=== PATIENT | male | born 1975 | race Caucasian/White ===

== ENCOUNTER → 2022-07-03 | Outpatient (CLI) | payer BC, OTHER | LOC: M SOG 08:12 | PROVIDERS: ATTEND Orthopaedic Surgery | DX: M25.562 Pain in left knee (principal) ==

== ENCOUNTER → 2022-07-24 | Outpatient (CLI) | payer BC | LOC: M SOG 08:31 | PROVIDERS: ATTEND Orthopaedic Surgery | DX: M25.561 Pain in right knee (principal) ==

== ENCOUNTER → 2023-04-06 | Outpatient (CLI) | payer BC | LOC: M SOG 08:48 | PROVIDERS: ATTEND Orthopaedic Surgery | DX: M17.0 Bilateral primary osteoarthritis of knee (principal) ==

== ENCOUNTER → 2023-04-23 | Outpatient (CLI) | payer BC | LOC: M SOG 07:56 | PROVIDERS: ATTEND Physician Assistant | DX: M25.512 Pain in left shoulder (principal) ==

== ENCOUNTER → 2023-06-25 | Outpatient (CLI) | payer OTHER | LOC: M RAD 07:20 | PROVIDERS: ATTEND Orthopaedic Surgery Hand Surgery | DX: M25.522 Pain in left elbow (principal); M25.532 Pain in left wrist ==

== ENCOUNTER → 2023-08-08 | Outpatient (CLI) | payer OTHER | LOC: M RAD 09:01 | PROVIDERS: ATTEND Orthopaedic Surgery Hand Surgery | DX: M25.512 Pain in left shoulder (principal) ==

== ENCOUNTER → 2023-08-17 | Outpatient (CLI) | payer BC ==
[2023-08-17 12:28] LABS: BASO % 0.5 % (0.0-1.0); EOS # 0.2 10^3/uL (0.0-0.5); EOS % 1.9 % (0.0-3.0); HEMATOCRIT 46.4 % (42.0-52.0); HEMOGLOBIN 15.6 g/dl (13.5-17.5); LYMPH # 2.5 10^3/uL (1.5-5.0); LYMPH % 29.3 % (24.0-44.0); MEAN CORPUSCULAR HEMOGLOBIN 27.9 pg (27.0-33.0); MEAN CORPUSCULAR HGB CONC 33.6 g/dl (32.0-36.5); MEAN CORPUSCULAR VOLUME 82.9 fl (80.0-96.0); MONO # 0.7 10^3/uL (0.0-0.8); MONO % 8.3 % (2.0-8.0); NEUTROPHILS % 59.6 % (36.0-66.0); PLATELET COUNT, AUTOMATED 275 10^3/uL (150-450); WHITE BLOOD COUNT 8.4 10^3/uL (4.0-10.0)
[2023-08-17 12:45] LABS: ALBUMIN 3.8 G/DL (3.2-5.2); ALKALINE PHOSPHATASE 93 U/L (46-116); ALT/SGPT 47 U/L (7.0-40); AST/SGOT 22 U/L (<34); BILIRUBIN,TOTAL 0.4 MG/DL (0.3-1.2); BLOOD UREA NITROGEN 10 MG/DL (9-23); CALCIUM LEVEL 8.8 MG/DL (8.5-10.1); CARBON DIOXIDE LEVEL 27 MMOL/L (20-31); CHLORIDE LEVEL 108 MMOL/L (98-107); CHOLESTEROL LEVEL 180 MG/DL (<200); CHOLESTEROL RISK RATIO 6.04 (<5); CREATININE FOR GFR 0.82 MG/DL (0.70-1.30); GLOMERULAR FILTRATION RATE > 60.0 (>60); GLUCOSE, FASTING 123 MG/DL (60-100); HDL CHOLESTEROL 29.8 MG/DL (>40); LDL CHOLESTEROL 96.8 MG/DL (<100); NON-HDL-C 150.2 MG/DL; POTASSIUM SERUM 3.9 MMOL/L (3.5-5.1); SODIUM LEVEL 138 MMOL/L (136-145); TOTAL PROTEIN 6.8 G/DL (5.7-8.2); TRIGLYCERIDES LEVEL 267 MG/DL (<150)
[2023-08-17 12:46] LABS: THYROID STIMULATING HORMONE 1.847 uIU/ML (0.55-4.78); TOTAL 25(OH) VITAMIN D 20.7 NG/ML (20.0-100.0)
[2023-08-17 12:47] LABS: FREE T4 0.96 NG/DL (0.89-1.76)
== END ==
LOC: M LAB 11:42
PROVIDERS: ATTEND Physician Assistant
DX: Z00.00 Encounter for general adult medical examination without abnormal findings (principal)

== ENCOUNTER → 2023-09-02 | Outpatient (CLI) | payer BC | LOC: M SOG 07:56 | PROVIDERS: ATTEND Orthopaedic Surgery | DX: M25.552 Pain in left hip (principal) ==

== ENCOUNTER 2023-12-04 08:36 | Day surgery (SDC) | payer BC ==
[~2023-12-04] VITALS: Ht 167.6 cm; Wt 115.8 kg
[~2023-12-04 08:36] MED LIST: NEXI40GR PO; NS 1,000 ML IV ONE
[2023-12-04] MEDS: NS 1,000 ML IV ONE (09:50)
[2023-12-04] MEDS ORDERED: LIDOCAINE 2% 100MG/5ML SDV (FOR ANES.) As Ordered ONE (11:40)
[2023-12-04] MEDS ORDERED: propofoL 200 MG/20 ML VIAL As Ordered ONE (11:41)
[2023-12-04 12:03] VITALS: TEMP 97.9
[2023-12-04 12:25] VITALS: BP 129/72; O2SAT 97
== END 2023-12-04 12:29 | disposition home or self-care (01) ==
LOC: M OPP 08:36
PROVIDERS: ATTEND Surgery
DX: Z12.11 Encounter for screening for malignant neoplasm of colon (principal); D12.6 Benign neoplasm of colon, unspecified; Z79.899 Other long term (current) drug therapy; Z88.1 Allergy status to other antibiotic agents